=== PATIENT | female | born 1955 | race Caucasian/White ===

== ENCOUNTER 2018-01-08 06:00 | Day surgery (SDC) | payer OTHER ==
[2018-01-08] MEDS ORDERED: ZOCOR20 MG PO (08:28)
[2018-01-08] MEDS ORDERED: SYNTHROID75 MCG PO (08:28)
[2018-01-08] MEDS ORDERED: COZAAR25 MG PO (08:28)
== END 2018-01-08 17:25 | disposition home or self-care (01) ==
LOC: CIR.AMB 06:00
DX: N85.01 Benign endometrial hyperplasia (principal)